=== PATIENT | female | born 1995 | race Caucasian/White ===

== ENCOUNTER 2019-02-26 10:45 | Emergency (ER) | payer OTHER ==
[~2019-02-26] VITALS: Ht 160 cm; Wt 51.3 kg
[2019-02-26 11:01] VITALS: BP 142/91
--- NOTE | 2019-02-26 11:06 | NUR ---
PATIENT AMBULATED TO BED 5.
[2019-02-26] MEDS ORDERED: BACITRACIN OINT 500 UNITS/GM PKT TP ONE (11:28)
--- NOTE | 2019-02-26 11:38 | NUR ---
24/F C/O ABRASION WOUND S/P bitten by a rabbit behind right knee x today. unprovoked attack, pt states she was not trying to pet animal prior to bite. rabbit chased her after initial bite unknown last tetanus. hx--scoliosis, kyphosis. PATIENT STATES PAIN OF 0/10 AT THIS TIME. PATIENT POSITIONED FOR COMFORT; HOB ELEVATED; BEDRAILS UP X1; BED DOWN. ER MD MADE AWARE OF PT STATUS.
--- NOTE | 2019-02-26 12:01 | NUR ---
APPLIED BACITRACIN TO ABRASION WOUND R [facility]
[2019-02-26 12:14] VITALS: BP 142/91
--- NOTE | 2019-02-26 12:28 | NUR ---
FAX TO [facility] [phone]
== END 2019-02-26 12:14 | disposition home or self-care (01) ==
LOC: MED 10:45
DX: S80.812A Abrasion, left lower leg, initial encounter (principal); W55.81XA Bitten by other mammals, initial encounter; Y93.89 Activity, other specified; Y92.89 Other specified places as the place of occurrence of the external cause; Y99.8 Other external cause status
CPT/HCPCS: 90471; 90715; 99283